=== PATIENT | female | born 1950 | race Caucasian/White ===

== ENCOUNTER 2019-02-02 11:48 | Inpatient (IN) | payer MEDICARE, OTHER ==
[~2019-02-02] VITALS: Ht 172.7 cm; Wt 69.5 kg
[~2019-02-02 11:48] MED LIST: CALCIUM PO; LEVO100T5 PO; MULT-658 PO; VIT D PO
[2019-02-02 12:56] VITALS: BP 113/74
[2019-02-02] MEDS ORDERED: GABAPENTIN 300 MG CAPSULE PO ONE (13:00)
[2019-02-02] MEDS ORDERED: ACETAMINOPHEN 500 MG TABLET PO ONE (13:00)
[2019-02-02] MEDS ORDERED: LACTATED RINGERS 1,000 ML IV SCH (13:00)
[2019-02-02] MEDS ORDERED: BUPIVACAINE/PF 0.25% ONE (17:48)
[2019-02-02] MEDS ORDERED: EPINEPHRINE 1 MG/ML, 1ML ONE (17:48)
[2019-02-02] MEDS ORDERED: hydrALAzine 20 MG/ML, 1ML IV PRN (18:30)
[2019-02-02] MEDS ORDERED: PROMETHAZINE 25 MG/ML, 1ML IV PRN (18:30)
[2019-02-02] MEDS ORDERED: HYDROmorphone 2 MG/ML, 1ML IVPush PRN (18:30)
[2019-02-02] MEDS ORDERED: LABETALOL 5MG/ML, 20ML IV PRN (18:30)
[2019-02-02] MEDS ORDERED: MEPERIDINE/PF 25MG/ML,1ML IVPush PRN (18:30)
[2019-02-02] MEDS ORDERED: HALOPERIDOL 5 MG/ML IV PRN (18:30)
[2019-02-02] MEDS ORDERED: OXYcodone 5 MG/5 ML ORAL.SOL UDC PO PRN (18:30)
[2019-02-02] MEDS ORDERED: MIDAZOLAM 1 MG/ML, 2ML ONE (19:14)
[2019-02-02] MEDS ORDERED: FENTANYL PF 250 MCG/5ML ONE ×2 (19:14→22:31)
[2019-02-02] MEDS ORDERED: DEXAMETHASONE 4 MG/ML, 1ML ONE (23:10)
[2019-02-02] MEDS ORDERED: GLYCOPYRROLATE 0.2MG/1ML, 5ML ONE (23:10)
[2019-02-02] MEDS ORDERED: SUCCINYLCHOLINE 20 MG/ML, 10ML ONE (23:10)
[2019-02-02] MEDS ORDERED: PROPOFOL 10 MG/ML, 20ML ONE (23:10)
[2019-02-02] MEDS ORDERED: NEOSTIGMINE 1 MG/ML, 10ML ONE (23:10)
[2019-02-02] MEDS ORDERED: ONDANSETRON 2MG/ML, 2ML ONE ×2 (23:10→23:41)
[2019-02-02] MEDS ORDERED: CEFAZOLIN 1,000 MG ONE (23:10)
[2019-02-02] MEDS ORDERED: ROCURONIUM 10MG/ML,5ML ONE (23:10)
[2019-02-02] MEDS ORDERED: OXYcodone/APAP 5/325MG TABLET PO PRN (23:30)
[2019-02-02] MEDS ORDERED: FENTANYL PF 100 MCG/2ML ONE (23:31)
[2019-02-02] MEDS: FENTANYL PF 100 MCG/2ML IV PRN ×2 (23:35→23:50)
[2019-02-02] MEDS ORDERED: OXYcodone 5 MG/5 ML ORAL.SOL UDC ONE (23:44)
[2019-02-03] MEDS: KETOROLAC 30 MG/1 ML IVPush PRN ×2 (01:06→14:47)
[2019-02-03] MEDS: ONDANSETRON 2MG/ML, 2ML IVPush PRN ×2 (01:23→07:12)
[2019-02-03 02:31] VITALS: BP 104/52
[2019-02-03] MEDS: LACTATED RINGERS 1,000 ML IV SCH ×2 (04:28→14:00)
[2019-02-03 06:28] VITALS: BP 106/58
[2019-02-03 07:12] VITALS: BP 138/74
[2019-02-03] MEDS ORDERED: ONDA4TAB7 PO (14:13)
[2019-02-03] MEDS ORDERED: OXYC-306 PO (14:14)
== END 2019-02-03 15:25 | disposition home or self-care (01) | DRG 738 ==
LOC: OUT 11:48 → 4NE 02-03 00:32 → OUT 02-03 03:02 → DCLOUNGE 02-03 15:16
PROVIDERS: ADMIT Specialist; ATTEND Specialist
PROC: 0UT9FZZ Resection of Uterus, Via Natural or Artificial Opening With Percutaneous Endoscopic Assistance (ICD-10-PCS; principal; 2019-02-03)
PROC: 0UT7FZZ Resection of Bilateral Fallopian Tubes, Via Natural or Artificial Opening With Percutaneous Endoscopic Assistance (ICD-10-PCS; 2019-02-03)
PROC: 0UT2FZZ Resection of Bilateral Ovaries, Via Natural or Artificial Opening With Percutaneous Endoscopic Assistance (ICD-10-PCS; 2019-02-03)
PROC: 0DTU4ZZ Resection of Omentum, Percutaneous Endoscopic Approach (ICD-10-PCS; 2019-02-03)
PROC: 07BC4ZZ Excision of Pelvis Lymphatic, Percutaneous Endoscopic Approach (ICD-10-PCS; 2019-02-03)
PROC: 0UBF4ZX Excision of Cul-de-sac, Percutaneous Endoscopic Approach, Diagnostic (ICD-10-PCS; 2019-02-03)
PROC: 0BBT4ZX Excision of Diaphragm, Percutaneous Endoscopic Approach, Diagnostic (ICD-10-PCS; 2019-02-03)
PROC: 0TBB4ZX Excision of Bladder, Percutaneous Endoscopic Approach, Diagnostic (ICD-10-PCS; 2019-02-03)
PROC: 0WBH4ZX Excision of Retroperitoneum, Percutaneous Endoscopic Approach, Diagnostic (ICD-10-PCS; 2019-02-03)
PROC: 8E0W4CZ Robotic Assisted Procedure of Trunk Region, Percutaneous Endoscopic Approach (ICD-10-PCS; 2019-02-03)
DX: C56.2 Malignant neoplasm of left ovary (principal); D27.0 Benign neoplasm of right ovary; C57.02 Malignant neoplasm of left fallopian tube; N73.6 Female pelvic peritoneal adhesions (postinfective); Z85.850 Personal history of malignant neoplasm of thyroid; Z80.3 Family history of malignant neoplasm of breast; Z88.2 Allergy status to sulfonamides; Z91.041 Radiographic dye allergy status
CPT/HCPCS: 36415; 86850; 86900; 86923; 88112; 88305; 88307; 88331; 88341; 88342; J0171; J0690; J1100; J1885; J2250; J2405; J2704; J2710; J3010; J3490; C1781; J0330; J7120